=== PATIENT | male | born 2000 | race Two or more races ===

== ENCOUNTER 2021-03-31 16:19 | Emergency (ER) | payer OTHER ==
[~2021-03-31] VITALS: Ht 177.8 cm; Wt 59.0 kg
[2021-03-31] MEDS ORDERED: KETO10TA2 PO (20:30)
== END 2021-03-31 20:44 | disposition home or self-care (01) ==
LOC: EMR PED 16:19
DX: R10.11 Right upper quadrant pain (principal); Z11.52 Encounter for screening for COVID-19